=== PATIENT | female | born 1975 | race Two or more races ===

== ENCOUNTER → 2016-10-22 | Outpatient (CLI) | payer OTHER | LOC: OD 12:23 | PROVIDERS: ATTEND Specialist | DX: R05 Cough (principal) | CPT/HCPCS: 87804 ==

== ENCOUNTER 2017-02-03 05:33 | Day surgery (SDC) | payer OTHER ==
[2017-02-02 11:51] LABS: ABSOLUTE EOSINOPHILS # (AUTO) 0.2 10^3/uL (0.0-0.6); ABSOLUTE LYMPHOCYTES (AUTO) 1.7 10^3/uL (0.5-4.7); ABSOLUTE MONOCYTES (AUTO) 0.5 10^3/uL (0.1-1.4); ABSOLUTE NEUT (AUTO) 6.2 10^3/uL (1.7-8.2); BASOPHILS % (AUTO) 0.5 % (0-2); EOSINOPHILS % (AUTO) 2.4 % (0-6); HEMATOCRIT 44.1 % (36.0-47.0); HEMOGLOBIN 15.1 g/dL (12.0-15.5); HGB HCT DIFFERENCE 1.2; LYMPHOCYTES % (AUTO) 19.8 % (13-45); MEAN CORPUSCULAR HGB CONC 34.2 g/dL (32.0-36.0); MEAN CORPUSCULAR VOLUME 94 fl (80-97); MONOCYTES % (AUTO) 5.5 % (3-13); RED BLOOD COUNT 4.72 10^6/uL (3.72-5.28); RED CELL DISTRIBUTION WIDTH 13.6 % (11.5-14.0); SEGMENTED NEUTROPHILS % (AUTO) 71.8 % (42-78); WHITE BLOOD COUNT 8.6 10^3/uL (4.0-10.5)
[2017-02-02 12:03] LABS: APPEARANCE,URINE CLEAR; BILIRUBIN,URINE NEGATIVE (NEGATIVE); GLUCOSE, URINE NEGATIVE (NEGATIVE); KETONES,URINE NEGATIVE (NEGATIVE); LEUKOCYTE ESTERASE,URINE NEGATIVE (NEGATIVE); NITRITE,URINE NEGATIVE (NEGATIVE); PROTEIN,URINE NEGATIVE (NEGATIVE); URINE SPECIFIC GRAVITY 1.004; UROBILINOGEN,URINE NEGATIVE mg/dL (<2.0)
[~2017-02-03 05:33] MED LIST: ACETAMINOPHEN 100 ML IV PRN; CEFAZOLIN 1 GM/D5W RTU 1 GM/50 ML RTUPB IV PRN; LACTATED RINGERS 1000 ML IV PRN; LIDOCAINE 0.5% INJ-PF (5 MG/ML) 50 ML SDV SUBCUT PRN; SCOPOLAMINE HYDROBROMIDE 1.5 MG PATCH.TD72 TD PRN
[2017-02-03] MEDS ORDERED: BUPIVACAINE HCL 0.25 % INJ/PF (2.5 MG/1 ML) 30 ML VIAL ONE (06:35)
[2017-02-03] MEDS ORDERED: FENTANYL CITRATE INJ/PF 250 MCG/5 ML AMPULE ONE (07:01)
[2017-02-03] MEDS ORDERED: MIDAZOLAM 2 MG/2 ML INJ ONE (07:01)
[2017-02-03] MEDS ORDERED: PROPOFOL INJ 200 MG/20 ML VIAL IV ONE (07:01)
[2017-02-03] MEDS ORDERED: ACETAMINOPHEN 100 ML IV ONE (07:01)
[2017-02-03] MEDS ORDERED: DIPHENHYDRAMINE HCL 50 MG/ML VIAL IV PRN (08:09)
[2017-02-03] MEDS ORDERED: ONDANSETRON HCL INJ/PF 4 MG/2 ML SDV IV PRN (08:09)
[2017-02-03] MEDS ORDERED: FENTANYL CITRATE INJ/PF 100 MCG/2 ML AMPUL IV PRN ×3 (08:09)
[2017-02-03] MEDS ORDERED: OXYCODONE-ACETAMINOPHEN 5-325 MG TABLET PO PRN ×2 (08:09)
[2017-02-03] MEDS ORDERED: MEPERIDINE HCL/PF INJ 25 MG/1 ML DISP.SYRIN IV PRN (08:09)
[2017-02-03] MEDS ORDERED: MORPHINE SULFATE 10 MG/ML INJ IV PRN (08:09)
[2017-02-03] MEDS ORDERED: PROMETHAZINE HCL INJ 25 MG/1 ML VIAL IV PRN ×2 (08:09)
[2017-02-03] MEDS ORDERED: METHYLENE BLUE INJ/PF 10 MG/1 ML SDV ONE (08:57)
[2017-02-03] MEDS: FENTANYL CITRATE INJ/PF 100 MCG/2 ML AMPUL ONE ×2 (09:29→09:36)
[2017-02-03] MEDS ORDERED: OXYCODONE HCL IR 5 MG TABLET ONE (10:13)
--- NOTE | 2017-02-03 10:38 | OPERATIVE REPORT E ---
Operative Report NAME: EWA CARD : 1975 AGE: 41Y DATE OF SURGERY: ROOM: PREOPERATIVE DIAGNOSIS: Painful right adnexal cyst. POSTOPERATIVE DIAGNOSIS: Right ovarian cyst which was adhesed to the pelvic sidewall. Possible endometriosis near the infundibulopelvic vessels on the right as well as within the cyst. OPERATION: Laparoscopic right salpingo-oophorectomy, left salpingectomy, cystoscopy. SURGEON: LETTY SHERMAN M.D. MICROFILM EQUIPMENT INSPECTOR: DR. COTA ANESTHESIA: General endotracheal. ESTIMATED BLOOD LOSS: 10 mL SPECIMENS TO PATHOLOGY: Right tube and ovary and left distal fallopian tube. Cytology of the cyst fluid. FINDINGS: There was approximately 4 cm right ovarian cyst that was adhesed to the right pelvic sidewall overlying the ureter. This appeared benign. It did spill during the course of the procedure, and the inside of the cyst appeared to have possible endometriosis. There was also some possible endometriosis near the infundibulopelvic vessels. The left tube and ovary appeared normal except for a small physiologic cyst. The appendix appeared normal. The ureters were patent bilaterally at the time of cystoscopy. PROCEDURE: After discussing risks, benefits, and alternatives of the procedure and obtaining informed consent, the patient was taken to the operating room where general anesthesia was achieved. She was positioned in the dorsal lithotomy position and prepped and draped in the usual standard fashion. A sponge stick was placed in the vagina for manipulation of the vaginal cuff. Pena catheter was placed. Attention was turned to the patient's abdomen. A 10 mm incision was made in the infraumbilical fold after premedicating with Marcaine 0.25%. The fascia was grasped with Kochers, elevated, and incised. Each side of the fascia was tagged with 0 Vicryl to be tied later. The 10 mm origin trocar was placed under direct visualization, and the abdomen insufflated. The patient was placed in Trendelenburg. A left lower quadrant 5 mm trocar was placed under direct visualization. Next, a 5 mm right lower quadrant trocar was placed under direct visualization. The pelvis was surveyed with the findings noted. The LigaSure device was called for. The infundibulopelvic ligaments in the superior aspect of the right ovary were coagulated and cut. Sharp scissors were used to dissect some of the peritoneal adhesions to the lower part of the cyst. Dr. Cota was then called for, and she was able to retract the ovary away from the sidewall, and we were able to complete the salpingo-oophorectomy with LigaSure device, taking the remainder of the cyst wall with it. The spill from the fluid was suctioned and will be sent for cytology. The right tube and ovary were placed in an EndoCatch bag and removed at the umbilical site after removing the origin trocar. The origin was replaced and the pneumoperitoneum reobtained. The left fallopian tube was then coagulated and cut with the LigaSure device and removed through the umbilical port trocar. The pelvis was irrigated and hemostasis assured. A small piece of Interceed was placed over the right sidewall. The ports were removed after assuring hemostasis under low pressure. The umbilical trocar site was closed with 0 Vicryl at the fascial level and then 3-0 Monocryl was used to close the skin incisions, followed by Dermabond. The Pena catheter was removed as was the sponge stick from the vagina. Cystoscopy was performed and there was spill of methylene blue tinted urine from each ureter. The patient was taken out of dorsal lithotomy, awakened from anesthesia and taken to recovery in stable condition. All sponge, needle, lap, and instrument counts were correct x2. DICTATING PHYSICIAN: LETTY SHERMAN M.D. [id number] PHY#: [id number] ID: [id number] JOB#: [id number] ACCT: [id number] cc:LETTY SHERMAN M.D. > MTDD
[2017-02-03 11:12] VITALS: BP 117/71
[2017-02-03] MEDS ORDERED: LIDOCAINE 2% INJ-PF (20 MG/ML) 10 ML AMPUL ONE (13:46)
[2017-02-03] MEDS ORDERED: DEXAMETHASONE SOD PHOSPHATE INJ 4 MG/1 ML VIAL ONE (13:46)
[2017-02-03] MEDS ORDERED: SUCCINYLCHOLINE CHLORIDE INJ 200 MG/10 ML VIAL ONE (13:46)
[2017-02-03] MEDS ORDERED: GLYCOPYRROLATE INJ 0.4 MG/2 ML VIAL ONE (13:46)
[2017-02-03] MEDS ORDERED: METOCLOPRAMIDE HCL INJ/PF 10 MG/2 ML SDV ONE (13:46)
[2017-02-03] MEDS ORDERED: VECURONIUM BROMIDE INJ 10 MG VIAL IV ONE (13:46)
[2017-02-03] MEDS ORDERED: KETOROLAC TROMETHAMINE 60 MG/2 ML SDV ONE (13:46)
[2017-02-03] MEDS ORDERED: ONDANSETRON HCL INJ/PF 4 MG/2 ML SDV ONE (13:46)
[2017-02-03] MEDS ORDERED: NEOSTIGMINE METHYLSULFATE 10 MG/10 ML VIAL ONE (13:46)
== END 2017-02-03 11:30 | disposition home or self-care (01) ==
LOC: OROUT 05:33
PROVIDERS: ATTEND Specialist
PROC: 0UT54ZZ Resection of Right Fallopian Tube, Percutaneous Endoscopic Approach (ICD-10-PCS; 2017-02-03)
PROC: 0UT64ZZ Resection of Left Fallopian Tube, Percutaneous Endoscopic Approach (ICD-10-PCS; 2017-02-03)
PROC: 0TJB8ZZ Inspection of Bladder, Via Natural or Artificial Opening Endoscopic (ICD-10-PCS; 2017-02-03)
PROC: 0UT04ZZ Resection of Right Ovary, Percutaneous Endoscopic Approach (ICD-10-PCS; principal; 2017-02-03 07:30)
DX: N83.291 Other ovarian cyst, right side (principal); N73.6 Female pelvic peritoneal adhesions (postinfective); N83.8 Other noninflammatory disorders of ovary, fallopian tube and broad ligament; Z79.51 Long term (current) use of inhaled steroids; Z79.899 Other long term (current) drug therapy; Z79.891 Long term (current) use of opiate analgesic
CPT/HCPCS: 86900; 86901; 36415; 86850; 85025; 81005; 88104 ×2; 88304 ×2; 88305 ×2; 58661; 52000; C1765; J2250; J0690; J1100; J1885; J3010 ×2; J3490 ×2; Q9968; J2765; J0330; J2405; J2704; J0131; 840

== ENCOUNTER 2017-12-02 16:40 | Emergency (ER) | payer BC, OTHER ==
[2017-12-02 18:57] LABS: ABSOLUTE EOSINOPHILS # (AUTO) 0.1 10^3/uL (0.0-0.6); ABSOLUTE MONOCYTES (AUTO) 0.5 10^3/uL (0.1-1.4); ABSOLUTE NEUT (AUTO) 8.5 10^3/uL (1.7-8.2); BASOPHILS % (AUTO) 0.4 % (0-2); EOSINOPHILS % (AUTO) 0.6 % (0-6); HEMATOCRIT 42.3 % (36.0-47.0); HEMOGLOBIN 14.2 g/dL (12.0-15.5); LYMPHOCYTES % (AUTO) 18.1 % (13-45); MEAN CORPUSCULAR HEMOGLOBIN 31.5 pg (27.0-33.4); MEAN CORPUSCULAR HGB CONC 33.6 g/dL (32.0-36.0); MEAN CORPUSCULAR VOLUME 94 fl (80-97); MONOCYTES % (AUTO) 4.8 % (3-13); PLATELET COUNT 221 10^3/uL (150-450); RED BLOOD COUNT 4.51 10^6/uL (3.72-5.28); RED CELL DISTRIBUTION WIDTH 13.2 % (11.5-14.0); SEGMENTED NEUTROPHILS % (AUTO) 76.1 % (42-78); TOTAL CELLS COUNTED % (AUTO) 100 %; WHITE BLOOD COUNT 11.2 10^3/uL (4.0-10.5)
[2017-12-02 19:26] LABS: CREATINE KINASE MB 0.23 ng/mL (<4.55)
[2017-12-02 19:27] LABS: TROPONIN I < 0.012 ng/mL
--- NOTE | 2017-12-02 19:31 | ER Document Report ---
ED Medical Screen (RME) - General Chief Complaint: Shortness Of Breath Stated Complaint: POSSIBLE HIGH BLOOD PRESSURE Time Seen by Provider: 12/02/17 17:51 Mode of Arrival: Ambulatory Information source: Patient Notes: This is a 42-year-old female presents to the emergency room because of palpitations and elevated blood pressure at work. Patient works at the [employer] and had palpitations had checked her blood pressure and it was elevated (150 over 80s). She denies chest pain. She is not a smoker or drinker. She does drink green tea in the morning but otherwise does not have significant coffee or soda. She denies any exertional chest pain. She has no family history of coronary artery disease in young people in the family. TRAVEL OUTSIDE OF THE [place] IN LAST 30 DAYS: No - HPI Onset: This afternoon Onset/Duration: Gradual Quality of pain: No pain Severity: None Pain Level: Denies Associated Symptoms: None. denies: Chest pain, Leg swelling, Nausea Exacerbated by: Denies Relieved by: Denies Similar symptoms previously: No Recently seen / treated by doctor: No - Related Data Smoking: Non-smoker Frequency of alcohol use: None Drug Abuse: None Allergies/Adverse Reactions: adhesive tape Allergy (Verified 12/02/17 16:41) Edema, REDNESS, Past Medical History - General Information source: Patient - Social History Cigarette use (# per day): No Chew tobacco use (# tins/day): No Frequency of alcohol use: None Drug Abuse: None Lives with: Family Family history: None - Past Medical History Cardiac Medical History: Denies: Hx Coronary Artery Disease, Hx Heart Attack, Hx Hypertension Pulmonary Medical History: Reports: Hx Asthma - SEASONAL WITH ALLERGIES RARE Denies: Hx Bronchitis - BRONCHITITS IN NOV 02, Hx COPD, Hx Pneumonia Neurological Medical History: Denies: Hx Cerebrovascular Accident, Hx Seizures Renal/ Medical History: Denies: Hx Peritoneal Dialysis Musculoskeltal Medical History: Denies Hx Arthritis Past Surgical History: Reports: Hx Hysterectomy. Denies: Hx Pacemaker - Immunizations Hx Diphtheria, Pertussis, Tetanus Vaccination: Yes Review of Systems - Review of Systems Constitutional: denies: Chills, Fever EENT: No symptoms reported Cardiovascular: Palpitations Respiratory: No symptoms reported Gastrointestinal: No symptoms reported Genitourinary: No symptoms reported Female Genitourinary: No symptoms reported Musculoskeletal: No symptoms reported Skin: No symptoms reported Hematologic/Lymphatic: No symptoms reported Neurological/Psychological: No symptoms reported Physical Exam - Vital signs Vitals: Temp Pulse Resp BP Pulse Ox 98.8 F 115 H 16 150/87 H 100 12/02/17 16:52 12/02/17 16:52 12/02/17 16:52 12/02/17 16:52 12/02/17 16:52 Notes: Physical exam: GENERAL: 42-year-old female, alert and oriented 3, no acute distress, she looks good HEAD: Atraumatic, normocephalic. EYES: Pupils equal round and reactive to light, extraocular movements intact, sclera anicteric, conjunctiva are normal. ENT: TMs normal, nares patent, oropharynx clear without exudates. Moist mucous membranes. NECK: Normal range of motion, supple without obvious mass or JVD. LUNGS: Breath sounds clear to auscultation bilaterally and equal. No wheezes rales or rhonchi. HEART: Regular rate and rhythm without murmurs, rubs or gallops. ABDOMEN: Soft, normoactive bowel sounds. No tenderness to palpation. No guarding, no rebound. No masses appreciated. EXTREMITIES: Normal range of motion, no pitting or edema. No clubbing or cyanosis. There is no calf pain. NEUROLOGICAL: Cranial nerves II through XII grossly intact. Normal speech, moving all extremities. PSYCH: Normal mood, normal affect. SKIN: Warm, Dry, normal turgor, no rashes or lesions noted. Course - Re-evaluation Re-evalutation: 12/02/17 19:59 Note: Patient's blood pressure is elevated and she was tachycardic on initial presentation. I did observe her for a few hours in the emergency room and she is looks quite good at this time. Her thyroid function tests, electrolytes and kidney functions are normal. I think this patient is very low risk for PE: Patient's oxygen level was 100% on room air. She has no Tenderness. She has no pleuritic chest pain. I will refer her to a primary care doctor. - Vital Signs Vital signs: Temp Pulse Resp BP Pulse Ox 98.8 F 115 H 16 150/87 H 100 12/02/17 16:52 12/02/17 16:52 12/02/17 16:52 12/02/17 16:52 12/02/17 16:52 - Laboratory Result Diagrams: 12/02/17 18:16 12/02/17 18:16 Laboratory results interpreted by me: 12/02/17 02 18:16 18:16 WBC 11.2 H Absolute Neutrophils 8.5 H Calcium 10.3 H - EKG Interpretation by Me Rate: Tachycardia Rhythm: NSR - EKG shows sinus tachycardia with a ventricular rate of 111, there is a PVC, no acute ST-T wave changes Doctor's Discharge - Discharge Clinical Impression: Elevated blood pressure, Hypertension Condition: Stable Disposition: HOME, SELF-CARE Additional Instructions: As we discussed, your thyroid function tests were normal and your electrolytes and kidney tests were normal. Your oxygen level was 100% on room air. I would like you to follow-up with the primary care doctor to have your blood pressure rechecked. If the blood pressure stays in this range, you will need to go on a blood pressure medicine. I left the number for 3 primary care doctors affiliated with this hospital below. If you have worsening palpitations, if you experience chest pain, shortness of breath or if your symptoms are getting worse or you feel like you are getting worse, return to the emergency room for evaluation. Primary Care Doctor's affiliated with [facility]: If you do not have a primary care doctor or you are unable to get an appointment during that time, you can try one of the doctor's below. These are internal medicine doctor's that have admitting priveledges to the hospital ( they will see you both in the office as well as in this hospital if you are ever hospitalized here). Dr. Doni Aparicio [facility] [address], [place] [address] [phone] Dr Walker Address: [address] [place] [address] Dr Machuca Address: [address] , [place] [address] Forms: Elevated Blood Pressure, Return to Work
[2017-12-02 19:32] LABS: FREE T3 3.38 pg/mL (2.77-5.27); FREE T4 (FREE THYROXINE) 0.97 ng/dL (0.78-2.19)
[2017-12-02 19:45] LABS: THYROID STIMULATING HORMONE 1.76 uIU/mL (0.47-4.68)
[2017-12-02 19:48] LABS: ALANINE AMINOTRANSFERASE 16 U/L (9-52); ALKALINE PHOSPHATASE 72 U/L (38-126); ANION GAP 14 (5-19); ASPARTATE AMINO TRANSFERASE 17 U/L (14-36); BILIRUBIN,DIRECT 0.1 mg/dL (0.0-0.4); BILIRUBIN,TOTAL 0.2 mg/dL (0.2-1.3); BLOOD UREA NITROGEN 10 mg/dL (7-20); CALCIUM 10.3 mg/dL (8.4-10.2); CARBON DIOXIDE 24 mmol/L (22-30); CHLORIDE 105 mmol/L (98-107); CREATINE KINASE 68 U/L (30-135); GLUCOSE 88 mg/dL (75-110); SODIUM 142.6 mmol/L (137-145); TOTAL PROTEIN 7.5 g/dL (6.3-8.2)
[2017-12-02 19:59] VITALS: BP 128/67
--- NOTE | 2017-12-03 09:55 | EKG REPORT ---
SEVERITY:- BORDERLINE ECG - SINUS TACHYCARDIA VENTRICULAR PREMATURE COMPLEX BORDERLINE T WAVE ABNORMALITIES : Confirmed by: Mariajose Cooper 03-Dec-2017 09:54:36
== END 2017-12-02 19:59 | disposition home or self-care (01) ==
LOC: ER 16:40
DX: I10 Essential (primary) hypertension (principal); R06.02 Shortness of breath; R00.2 Palpitations
CPT/HCPCS: 36415; 80053; 82550; 82553; 84439; 84443; 84481; 84484; 85025; 93005; 93010; 99285